=== PATIENT | male | born 1995 | race Caucasian/White ===

== ENCOUNTER 2017-07-28 19:53 | Emergency (ER) | payer OTHER ==
[~2017-07-28] VITALS: Ht 167.6 cm; Wt 81.1 kg
[~2017-07-28 19:53] MED LIST: ASCO1CAP3 PO; MULT-513 PO; OMEG10007 PO; PROT1POW7 PO
[2017-07-28 20:03] VITALS: TEMP 36.7; Ht 167.6 cm; Wt 81.1 kg
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
[2017-07-28 22:57] VITALS: BP 119/65; PULSE 54; O2SAT 97
== END 2017-07-28 22:58 | disposition home or self-care (01) ==
LOC: C.EDB 19:55 → C.EDD 22:58
DX: S79.911A Unspecified injury of right hip, initial encounter (principal); M25.551 Pain in right hip; M25.552 Pain in left hip; M25.561 Pain in right knee; M54.9 Dorsalgia, unspecified; V03.00XA Pedestrian on foot injured in collision with car, pick-up truck or van in nontraffic accident, initial encounter; Y92.481 Parking lot as the place of occurrence of the external cause